=== PATIENT | female | born 1995 | race Caucasian/White ===

== ENCOUNTER 2025-02-09 17:56 | Emergency (ER) | payer BC, MEDICAID ==
[~2025-02-09] VITALS: Ht 162.6 cm; Wt 76.4 kg
[2025-02-09] MEDS: ONDANSETRON ODT 4 MG TAB PO ONE (18:45)
--- NOTE | 2025-02-09 18:45 | ED.PDOC ---
GI ASSESSMENT HPI Comments 29y F who presents to the ED for chief complaint of nausea and vomiting. Pt states she is currently 10 weeks , , and states she has been having nausea, vomiting, chills, since 0700 this AM getting progressively since. Pt states she started to develop cough and shortness of breath and called OB office who referred the patient to the ED for further evaluation. Pt otherwise has noted recent sick contact of partner who recently was ill and dx with Influenza B. Pt otherwise denies any other symptoms. Pt denies any other symptoms at this time. Time Seen by MD: 18:42 Primary Care Provider: TOYINK Reviewed Notes: Medications, Allergies Allergies: Coded Allergies: NO KNOWN ALLERGIES (Unverified , 02/09/25) Information Source: Patient, Significant Other Mode of Arrival: Ambulatory Brought in by: significant other Timing: Hours Duration: Since onset Prehospital treatment: None Quality: Cramping Vomitus: Firm Severity: Moderate Recent: None Recent Hx of: Current Pain Location: None Associated sign and symptoms: Nausea, Vomiting, Constipation Past Medical History PAST MEDICAL HISTORY: HTN Surgical History: Denies all surgeries LABEL REMOVER History: No Pertinent LABEL REMOVER History Family History Family History: Unknown Social History Smoker: Non-Smoker Alcohol: Denies ETOH Use Drugs: Denies Drug Use Lives In: Home Constitutional: reports: chills; denies: diaphoresis, fatigue, fever, malaise, sweats, weakness, others EENTM: denies: blurred vision, double vision, ear bleeding, ear discharge, ear drainage, ear pain, ear ringing, eye pain, eye redness, hearing loss, mouth pain, mouth swelling, nasal discharge, nose bleeding, nose congestion, nose pain, photophobia, tearing, throat pain, throat swelling, voice changes, others Respiratory: reports: cough, shortness of breath; denies: hemoptysis, orthopnea, SOB at rest, SOB with excertion, stridor, wheezing, others Cardiovascular: denies: chest pain, dizzy spells, diaphoresis, Dyspnea on exertion, edema, irregular heart beat, left arm pain, lightheadedness, palpitations, PND, syncope, others Gastrointestinal: reports: nausea, vomiting; denies: abdomen distended, abdominal pain, blood streaked bowels, constipated, diarrhea, dysphagia, difficulty swallowing, hematemesis, melena, poor appetite, poor fluid intake, rectal bleeding, rectal pain, others Genitourinary: denies: abnormal vagina bleeding, burning, dyspareunia, dysuria, flank pain, frequency, hematuria, incontinence, pain, , vagina discharge, urgency, others Neurological: denies: dizziness, fainting, headache, left sided numbness, left sided weakness, numbness, paresthesia, pre-existing deficit, right sided numbness, right sided weakness, seizure, speech problems, tingling, tremors, weakness, others Musculoskeletal: denies: back pain, gout, joint pain, joint swelling, muscle pain, muscle stiffness, neck pain, others Integumetry: denies: bruises, change in color, change in hair/nails, dryness, laceration, lesions, lumps, rash, wounds, others Allergic/Immunocompromised: denies: Difficulty Healing, Frequent Infections, Hives, Itching, others Hematologic/Lymphatic: denies: anemia, blood clots, easy bleeding, easy bruising, swollen glands, others Endocrine: denies: excessive hunger, excessive sweating, excessive thirst, excessive urination, flushing, intolerance to cold, intolerance to heat, unexplained weight gain, unexplained weight loss, others Psychiatric: denies: anxiety, bipolar disorder, depression, hopeless, panic disorder, schizophrenia, sleepless, suicidal, others All Other Systems: Reviewed and Negative Physical Exam General Appearance: Mild Distress HEENT: Normal ENT Inspection, Pharynx Normal, TMs Normal Neck: Full Range of Motion, Non-Tender, Normal, Normal Inspection Respiratory: Chest Non-Tender, Lungs Clear, No Accessory Muscle Use, No Respiratory Distress, Normal Breath Sounds Cardiovascular: No Edema, No JVD, No Murmur, No Gallop, Normal Peripheral Pulses, Regular Rate/Rhythm Breast Exam: Deferred Gastrointestinal: No Organomegaly, Non Tender, No Pulsatile Mass, Normal Bowel Sounds, Soft Genitalia: Deferred Pelvic: Deferred Rectal: Deferred Extremities: No calf tenderness, Normal capillary refill, Normal inspection, Normal range of motion, Non-tender, No pedal edema Musculoskeletal : Apperance: Normal Neurologic: Alert, cobbler upper II-XII nml as Tested, No Motor Deficits, Normal Affect, Normal Mood, No Sensory Deficits Cerebellar Function: Normal Reflexes: Normal Skin: Dry, Normal Color, Warm Lymphatic: No Adenopathy Was a procedure done? Was a procedure done?: No GI differential Dx Differential Diagnosis: Esophagitis, Gastritis/PUD, Gastroenteritis, Pancreatitis, UTI, Urolithiasis, Dehydration, Food Poisoning, Other Differential Diagnosis Influenza A and B, viral syndrome X-Ray, Labs, Meds, VS Vital Signs Date Time Temp Pulse Resp B/P (MAP) Pulse Ox O2 Delivery O2 Flow Rate FiO2 02/09/25 19:21 98.8 84 16 126/87 (100) 97 98.8 02/09/25 18:46 98.2 92 17 141/87 (105) 98 98.2 02/09/25 18:46 92 17 98 Room Air* 0 21 Lab Test 02/09/25 18:28 Range/Units Influenza Type A Antigen Negative Negative Influenza Type B Antigen Negative Negative SARS-CoV-2 Antigen (Rapid) Negative NEGATIVE Current Medications Medications (Trade) Dose Ordered Sig/Sharad Route Start Time Stop Time Status Last Admin Ondansetron HCl (Zofran Po) 4 mg ONCE ONCE PO 02/09/25 18:30 02/09/25 18:31 DC 02/09/25 18:45 OB ULTRASOUND <14 WEEKS: IMPRESSION: 1. IUP single live fetus 10 weeks 2 days AUA corresponding to an SANA of 09/05/2025. 2. FHR: 186 bpm The patient's COVID test is negative The influenza a and influenza B are negative At this time, the patient was being discharged and will follow up with the primary care doctor The patient will return to the emergency department's the condition worsens The patient was given Zofran here in the emergency department's for the nausea The patient will follow up with her OBGYN. Time of 1ST Reevaluation: 19:15 Reevaluation 1ST: Unchanged Patient Education/Counseling: Diagnosis, Treatment, Prognosis, Need For Follow Up Family Education/Counseling: Diagnosis, Treatment, Prognosis, Need For Follow Up Departure 1 Departure Time of Disposition: 20:23 Impression: Primary Impression: Viral syndrome Disposition: 01 HOME / SELF CARE / HOMELESS Condition: Fair Discharged With: Self Critical Care Note Critical Care Time?: No Stability Stability form required: No Heart Score Heart Score: Heart Score Response (Comments) Value History N/A 0 EKG N/A 0 Age N/A 0 Risk Factors N/A 0 Troponin N/A 0 Total 0 I personally scribed for EDDIE FORTUNE MD ([email or web address]) on 02/09/25 at 18:45. Electronically submitted by Chuy Ashton ([facility]). I personally scribed for EDDIE FORTUNE MD ([email or web address]) on 02/09/25 at 19:45. Electronically submitted by Chuy Ashton ([email or web address]). EDDIE FORTUNE MD Feb 09, 2025 18:45
[2025-02-09 18:46] VITALS: PULSE 92; RESP 17; O2SAT 98
[2025-02-09 19:21] VITALS: TEMP 98.8
--- NOTE | 2025-02-09 19:22 | DVH ---
OB ULTRASOUND <14 WEEKS: HISTORY: pain TECHNIQUE: Multiple real-time grayscale sonographic images of the pelvis with duplex Doppler color f low, spectral and M-mode analysis. TRANSDUCERS: Transabdominal FINDINGS: The uterus measures 9.6 x 6.2 x 6.6 cm The cervix not measured Right ovary not seen Left ovary measures 3.3 x 2.9 x 2.5 cm with normal Doppler color flow IUP single live fetus at 10 weeks 2 days average ultrasound age based on mean crown-rump length of 3. 5 cm and gestational sac size of 4.5 cm heart rate detected at 186 beats per minute. Yolk sac not visible. Amniotic fluid adequate Krupa-gestational space: Normal IMPRESSION: 1. IUP single live fetus 10 weeks 2 days AUA corresponding to an SANA of 09/05/2025. 2. FHR: 186 bpm
[2025-02-09 19:55] LABS: Rapid Influenza A Negative (Negative); Rapid Influenza B Negative (Negative)
[2025-02-09 19:56] LABS: COVID19 ANTIGEN SOFIA FIA NEGATIVE (NEGATIVE)
[2025-02-09 20:30] VITALS: BP 142/98; PULSE 87; RESP 18; O2SAT 100
[2025-02-09 20:35] LABS: Urine Amorphous Crystal FEW /hpf (None Seen); Urine Bacteria FEW /hpf (None Seen); Urine Blood Negative /uL (Negative); Urine Clarity Turbid (Clear); Urine Color Light-Yellow (Yellow); Urine Mucus FEW (None Seen); Urine Protein, UAD Negative (Negative); Urine Specific Gravity 1.015 (1.001-1.035); Urine Squamous Epithelial Cell FEW /hpf (<5); Urine Urobilinogen Normal (Negative); Urine WBC 5 /HPF (0-5); Urine pH 7.5 (5.0-9.0)
[2025-02-09] MEDS: SODIUM CHLORIDE 0.9% 1,000 ML IV ONE (20:40)
[2025-02-09] MEDS ORDERED: ZOFR4T PO (21:33)
== END 2025-02-09 21:37 | disposition home or self-care (01) ==
LOC: ER 17:56
DX: O98.511 Other viral diseases complicating pregnancy, first trimester (principal); O21.9 Vomiting of pregnancy, unspecified; O10.911 Unspecified pre-existing hypertension complicating pregnancy, first trimester; B34.9 Viral infection, unspecified; Z3A.10 10 weeks gestation of pregnancy; Z20.822 Contact with and (suspected) exposure to COVID-19
CPT/HCPCS: 36415; 76801; 81001; 87426; 87804; 96360; 99284; J7030

== ENCOUNTER 2025-06-08 14:00 | Observation (INO) | payer BC ==
[~2025-06-08 14:00] MED LIST: ZOFR4T PO
[2025-06-08] MEDS ORDERED: PREN-96 PO (14:39)
--- NOTE | 2025-06-08 16:40 | DVH ---
COMPLETE ABDOMINAL ULTRASOUND HISTORY: RUQ pain with abdominal cramping TECHNIQUE: Grayscale and color-flow Doppler ultrasound examination of the abdomen was performed. COMPARISON: None Findings: Liver measures 15.6 cm in length with increased echotexture and normal contours. No evidence of solid or cystic hepatic lesions, or intrahepatic ductal dilatation. Common bile duct nonvisualized. No albina dence of perihepatic free fluid noted. Normal hepatopedal flow within the portal vein. Gallbladder wall is within normal limits measuring 0.1 cm in thickness. There are shadowing calculi. No evidence of biliary sludge or pericholecystic fluid. Negative sonographic Rodríguez's sign. Visualized portions of the pancreas are grossly unremarkable. Spleen appears within normal limits measuring 10.6 cm with homogenous echotexture and normal contours . Right kidney measures 10.0 cm. Left kidney measures 11.7 cm. Normal renal contours, echotexture and c ortical thickness bilaterally. No evidence of hydronephrosis, nephrolithiasis, cystic or solid renal lesions. The aorta and IVC are not well visualized. Impression: 1. No acute abdominal abnormalities. 2. Cholelithiasis without evidence of acute cholecystitis. 3. Hepatic steatosis.
--- NOTE | 2025-06-09 04:45 | DVHDS2 ---
Physician Discharge Progress N Final Diagnosis: ABD PAIN 24WKS S/P SONO FINDINGS C/W GALLSTONES Operations or Procedures: Operations or Procedures NST ,SONO Consultations: Consultations GALLSTONES Condition on Discharge: Good Disposition: Home Discharge Instructions: Diet: See Comment Diet comment: Stay away from fatty foods Activity: No Restrictions, As Tolerated Medications: NA Follow Up Care: Specialist: 1W Discharge Statement: "Patient was advised to return to the ER or call 911 if any headaches, dizziness, shortness of breath, chest pain, abdominal pain, bleeding, fevers, or worsening of medical condition. Patient was counseled about treatment plan, medications, possible side effects, patientverbalized understanding. All questions were answered to the best of my ability. This discharge took greater then 30 minutes in planning, reviewing documentation, counseling the patient, and discussing with other team members." Visit Coding OBGYN Date of Service: Jun 08, 2025 Billing Provider: ROSEMARY LI DO BRIDGE BUILDER Common Visit Codes: 09160-[id number] OBS CARE (HIGH) BRIDGE BUILDER Procedure Codes: 35675-70- NON-STRESS TEST ROSEMARY LI DO Jun 09, 2025 04:45
== END 2025-06-08 16:07 | disposition home or self-care (01) ==
LOC: LDRP 14:00
PROVIDERS: ADMIT Obstetrics & Gynecology; ATTEND Obstetrics & Gynecology
DX: O99.612 Diseases of the digestive system complicating pregnancy, second trimester (principal); K80.20 Calculus of gallbladder without cholecystitis without obstruction; O26.892 Other specified pregnancy related conditions, second trimester; R10.11 Right upper quadrant pain; Z3A.24 24 weeks gestation of pregnancy; Z79.899 Other long term (current) drug therapy
CPT/HCPCS: 76700; 81002; 94760; G0378

== ENCOUNTER 2025-07-20 10:52 | Observation (INO) | payer BC ==
[~2025-07-20] VITALS: Ht 162.6 cm; Wt 81.6 kg
[~2025-07-20 10:52] MED LIST changes: +PREN-96 PO
--- NOTE | 2025-07-20 12:07 | DVH ---
BIOPHYSICAL PROFILE HISTORY: GDMA1 Comparison Study: US ABDOMEN COMPLETE SONOGRAM on DOS: 06/08/25, US OB ULTRASOUND COMP LESS 14WKS on D OS: 02/09/25 TECHNIQUE: Multiple real-time grayscale sonographic images through the gravid uterus of the fetus wi th duplex Doppler color flow and M-mode spectral analysis FINDINGS: BIOPHYSICAL PROFILE: breathing score: 2 movement score: 2 tone score: 2 Quantitative JOB score: 2 (JOB: 15.7 Cm.) Total score: 8 The cervix is not visualized Single live fetus in cephalic presentation. heart rate 148 beats per minute. Grade 1, anterior placenta without previa or abruption IMPRESSION: Biophysical profile score: 8
== END 2025-07-20 12:50 | disposition home or self-care (01) ==
LOC: LDRP 10:52
PROVIDERS: ADMIT Obstetrics & Gynecology; ATTEND Obstetrics & Gynecology
DX: O24.419 Gestational diabetes mellitus in pregnancy, unspecified control (principal); Z3A.33 33 weeks gestation of pregnancy; Z98.890 Other specified postprocedural states
CPT/HCPCS: 76818; 81002; 82948; 82962; 94760; G0378; 59025; 76819

== ENCOUNTER 2025-07-27 06:12 | Observation (INO) | payer BC ==
--- NOTE | 2025-07-27 14:03 | DVH ---
BIOPHYSICAL PROFILE HISTORY: GDMA1 TECHNIQUE: Multiple transabdominal real-time grayscale sonographic images through the gravid uterus of the fetus with duplex Doppler color flow and M-mode spectral analysis FINDINGS: BIOPHYSICAL PROFILE: breathing score: 2 movement score: 2 tone score: 2 Quantitative JOB score: 2 (JOB: 16 Cm.) Total score: 8 The cervix not well visualized. Single live fetus in cephalic presentation. heart rate 136 beats per minute. Anterior placenta without previa or abruption IMPRESSION: Biophysical profile score: 8
== END 2025-07-27 14:14 | disposition home or self-care (01) ==
LOC: UNDOADMOB 13:00 → LDRP 13:00
PROVIDERS: ADMIT Obstetrics & Gynecology; ATTEND Obstetrics & Gynecology
DX: O24.419 Gestational diabetes mellitus in pregnancy, unspecified control (principal); Z3A.34 34 weeks gestation of pregnancy; Z98.890 Other specified postprocedural states
CPT/HCPCS: 76818; 81002; 82948; 82962; 94760; G0378; 76819

== ENCOUNTER 2025-08-03 06:37 | Observation (INO) | payer BC ==
--- NOTE | 2025-08-03 12:12 | DVH ---
BIOPHYSICAL PROFILE HISTORY: GDMA1 Comparison Study: US BIOPHYSICAL PROFILE on DOS: 07/27/25, US BIOPHYSICAL PROFILE on DOS: 07/20/25, US A BDOMEN COMPLETE SONOGRAM on DOS: 06/08/25, US OB ULTRASOUND COMP LESS 14WKS on DOS: 02/09/25 TECHNIQUE: Multiple real-time grayscale sonographic images through the gravid uterus of the fetus wi th duplex Doppler color flow and M-mode spectral analysis FINDINGS: BIOPHYSICAL PROFILE: breathing score: 2 movement score: 2 tone score: 2 Quantitative JOB score: 2 (JOB: 14.7 Cm.) Total score: 8 The cervix is not visualized Single live fetus in cephalic presentation. heart rate 135 beats per minute. Angerior placenta without previa or abruption IMPRESSION: Biophysical profile score: 8
--- NOTE | 2025-08-03 16:13 | DVHDS2 ---
Physician Discharge Progress N Final Diagnosis: gdm 35wks Operations or Procedures: Operations or Procedures nst reactive reviwed,,sono Condition on Discharge: Good Disposition: Home Discharge Instructions: Diet: Regular Activity: No Restrictions, As Tolerated Medications: na Follow Up Care: Specialist: 2d Discharge Statement: "Patient was advised to return to the ER or call 911 if any headaches, dizziness, shortness of breath, chest pain, abdominal pain, bleeding, fevers, or worsening of medical condition. Patient was counseled about treatment plan, medications, possible side effects, patientverbalized understanding. All questions were answered to the best of my ability. This discharge took greater then 30 minutes in planning, reviewing documenta tion, counseling the patient, and discussing with other team members." Visit Coding OBGYN Date of Service: Aug 03, 2025 Billing Provider: ROSEMARY LI DO HEEL SEAT FITTER Common Visit Codes: 24069-FICPIIT OBS CARE (HIGH) HEEL SEAT FITTER Procedure Codes: 65417-98- NON-STRESS TEST ROSEMARY LI DO Aug 03, 2025 16:13
== END 2025-08-03 13:10 | disposition home or self-care (01) ==
LOC: LDRP 10:56 → UNDOADMOB 10:56 → LDRP 11:36
PROVIDERS: ADMIT Obstetrics & Gynecology; ATTEND Obstetrics & Gynecology
DX: O24.419 Gestational diabetes mellitus in pregnancy, unspecified control (principal); Z3A.35 35 weeks gestation of pregnancy; Z79.899 Other long term (current) drug therapy
CPT/HCPCS: 76818; 81002; 82948; G0378; 59025; 76819

== ENCOUNTER 2025-08-10 06:48 | Observation (INO) | payer BC ==
[~2025-08-10] VITALS: Ht 162.6 cm; Wt 82.6 kg
--- NOTE | 2025-08-10 12:05 | DVH ---
BIOPHYSICAL PROFILE HISTORY: GMDA1 TECHNIQUE: Multiple transabdominal real-time grayscale sonographic images through the gravid uterus of the fetus with duplex Doppler color flow and M-mode spectral analysis FINDINGS: BIOPHYSICAL PROFILE: breathing score: 2 movement score: 2 tone score: 2 Quantitative JOB score: 2 (JOB: 11.1 Cm.) Total score: 8 The cervix not well seen. Single live fetus in cepjalic presentation. heart rate 130 beats per minute. Anterior placenta without previa or abruption IMPRESSION: Biophysical profile score: 8
--- NOTE | 2025-08-12 16:26 | DVHDS2 ---
Physician Discharge Progress N Final Diagnosis: gdm 36wks Operations or Procedures: Operations or Procedures nst reactive reviwed,sono Condition on Discharge: Good Disposition: Home Discharge Instructions: Diet: Consistent carbohydrate Activity: Light activity Medications: na Follow Up Care: Specialist: 1w Discharge Statement: "Patient was advised to return to the ER or call 911 if any headaches, dizziness, shortness of breath, chest pain, abdominal pain, bleeding, fevers, or worsening of medical condition. Patient was counseled about treatment plan, medications, possible side effects, patientverbalized understanding. All questions were answered to the best of my ability. This discharge took greater then 30 minutes in planning, reviewing documenta tion, counseling the patient, and discussing with other team members." Visit Coding OBGYN Date of Service: Aug 10, 2025 Billing Provider: ROSEMARY LI DO IMCU SPECIALIST Common Visit Codes: 69149-KFSTAGL OBS CARE (HIGH) IMCU SPECIALIST Procedure Codes: 17110-09- NON-STRESS TEST ROSEMARY LI DO Aug 12, 2025 16:26
== END 2025-08-10 12:27 | disposition home or self-care (01) ==
LOC: LDRP 11:05
PROVIDERS: ADMIT Obstetrics & Gynecology; ATTEND Obstetrics & Gynecology
DX: O24.419 Gestational diabetes mellitus in pregnancy, unspecified control (principal); Z3A.36 36 weeks gestation of pregnancy; Z98.890 Other specified postprocedural states
CPT/HCPCS: 76818; 81002; 82948; 82962; 94760; G0378; 59025; 76819

== ENCOUNTER 2025-08-17 08:45 | Inpatient (IN) | payer BC ==
[~2025-08-17] VITALS: Ht 162.6 cm; Wt 82.6 kg
[2025-08-17 13:00] LABS: Hematocrit 41.4 % (36.0-46.0); Hemoglobin 14.1 g/dL (12.2-16.2); Mean Corpuscular Hemoglobin 29.7 pg (28.0-32.0); Mean Corpuscular Volume 87.5 fL (80.0-100.0); Nucleated Red Blood Cells % 0.0 %
[2025-08-17 13:17] LABS: Urine Protein, UAD TRACE (Negative)
[2025-08-17 13:18] LABS: Alanine Aminotransferase 15 U/L (7-40); Albumin 3.8 g/dL (3.2-4.8); Anion Gap 14 (5-15); BUN/Creatinine Ratio 12.5 (10.0-20.0); Calcium 8.8 mg/dL (8.7-10.4); Chloride 103 mmol/L (98-107); INR 0.94 (0.9-1.15); Partial Thromboplastin Time 25.9 SEC (24.5-34.5); Potassium 3.7 mmol/L (3.5-5.1); Prothrombin Time 10.0 sec (9.3-11.8); Total Protein 6.7 g/dL (5.7-8.2)
[2025-08-17 13:31] LABS: Alkaline Phosphatase 140 U/L (46-116); Bilirubin, Total 0.3 mg/dL (0.2-1.0); Blood Urea Nitrogen 9 mg/dL (9-23); Carbon Dioxide 19 mmol/L (20-31); Glucose 138 mg/dL (74-106); Sodium 136 mmol/L (136-145); Uric Acid 9.6 mg/dL (3.1-7.8)
--- NOTE | 2025-08-17 13:43 | DVH ---
BIOPHYSICAL PROFILE HISTORY: gdma1 TECHNIQUE: Multiple transabdominal real-time grayscale sonographic images through the gravid uterus of the fetus with duplex Doppler color flow and M-mode spectral analysis FINDINGS: BIOPHYSICAL PROFILE: breathing score: 2 movement score: 2 tone score: 2 Quantitative JOB score: 2 (JOB: 11.7 Cm.) Total score: 8 The cervix not well visualized. Single live fetus in cephalic presentation. heart rate 131 beats per minute. Anterior placenta without previa or abruption IMPRESSION: Biophysical profile score: 8
[2025-08-17 14:17] LABS: Protein, Urine 24.6 mg/dL (1-14)
[2025-08-17] MEDS ORDERED: BUTORPHANOL TARTRATE 2 MG/1 ML VIAL IV PRN ×2 (14:30)
[2025-08-17] MEDS ORDERED: LIDOCAINE 2%HCL (LOCAL ANESTH.) INJ 20ML MDV IJ PRN (14:30)
--- NOTE | 2025-08-17 15:27 | DVHHP2 ---
OB CC & HPI Date Date of Admission: Aug 17, 2025 Patient Identification: : 1 Para: 0 EDC: Sep 03, 2025 EGA: 37.4wks Chief Complaints: Reason for admission: induction of labor Indication for induction: medical complication (preeclampsia with severe features and GDM, A1) History of Present Complaints 29yo IUP@37.4wks presents to OB triage with c/o headache that did not go away with tylenol at home. Denies UCs/LOF/VB/vision changes/RUQ pain. Endorses +FM. PNC: Routine PNC at [facility] with Dr. Phelan, adequate visits, PNC complicated by GDM, A1. GTT wnl, dating based on 9w3d sono not c/w LMP, GBS negative. Past Medical History Cardiac: No pertinent Hx Pulmonary: No pertinent Hx Central Nervous System: Other (brain tumor benign) GI: No pertinent Hx Hemotology/Oncology: No pertinent Hx Hepatobiliary: No pertinent Hx Psychiatric: No pertinent Hx Musculoskeletal: No pertinent Hx Rheumotologic: No pertinent Hx Infectious Disease: No peritnent Hx ENT: No pertinent Hx Renal/: No pertinent Hx Endocrine: No pertinent Hx Dermatology: No pertinent Hx Others pt has hx of fainting when she gets hot Past Surgical History: No pertinent Hx OB History OB History Care: Good Care Ultrasounds: Normal mid trimester US Obstetrical Complications: Gestational Diabetes (A1), Pre-eclampsia (severe features) Medical Complications: None Allergies: Coded Allergies: Peanut-containing Drug Products (Verified Allergy, Unknown, 07/20/25) Home Meds Active Scripts Ondansetron Odt 4MG Tab (ZOFRAN PO) 4 Mg Tb, 4 MG PO Q8HP PRN, #14 TAB ODT TAB-DISSOLVE IN MOUTH, THEN SWALLOW Prov:EDDIE FORTUNE MD 02/09/25 Reported Medications Vit W/ Ferrous Fumara ( One Daily) Daily Tab, 1 TAB PO DAILY, #90 TAB 3 Refills 06/08/25 Current Medications Current Medications Medications (Trade) Dose Ordered Sig/Sharad Route PRN Reason Start Time Stop Time Status Last Admin Lactated Ringer's 1,000 ml @ 125 mls/hr Q8H IV 08/17/25 14:30 Diagnostic Test (Pha) (Accu-Chek Comfort Curve T) 1 strip Q4HR 08/17/25 17:00 Witch Keira (Tucks) 1 pad PRN PRN TOP PERINEAL AREA DISCOMFORT 08/17/25 14:30 Sodium Lauryl Sulfate (Phisoderm) 240 ml PRN PRN TOP PERINEAL AREA DISCOMFORT 08/17/25 14:30 Benzocaine (Dermoplast) 1 applic PRN PRN TOP PERINEAL AREA DISCOMFORT 08/17/25 14:30 Butorphanol Tartrate (Stadol Injection) 1 mg Q4HPRN PRN IV MODERATE PAIN (4-6 PAIN SCALE) 08/17/25 14:30 Butorphanol Tartrate (Stadol Injection) 2 mg Q4HPRN PRN IV SEVERE PAIN (7-10 PAIN SCALE) 08/17/25 14:30 Misoprostol (Cytotec) 50 mcg Q4HPRN PRN PO CERVICAL RIPENING 08/17/25 14:30 Lidocaine HCl (Xylocaine) 40 ml ONCE PRN IJ PERINEAL AREA DISCOMFORT 08/17/25 14:30 Magnesium Sulfate 1,000 ml @ 50 mls/hr Q20H IV 08/17/25 14:30 Family & Social History Family/Social History Past Family/Social History: denies Blood Type: O+ Rubella: immune RPR/VDRL: Negative GBS Status: Negative HBsAG: Negative Review of Systems Constitutional: No symptom reported Ears, Nose, & Throat: No symptom reported Eyes: No symptom reported Pulmonary/Respiratory: No symptom reported Cardiovascular: No symptom reported Gastrointestinal: No symptom reported Genitourinary: No symptom reported Musculoskeletal: No symptom reported Skin: No symptom reported Psychiatric: No symptom reported Endocrine: No symptom reported Hemotologic/Lymphatic: No symptom reported OB Admission Exam Physical Exam Vitals: VSS, see CPN EFW in office last week: 6lbs 12oz HEENT: TMs Normal, Fontanelles Normal, Nasal Mucosa Normal, Eyes non-injected, Oropharynx Normal, PERRLA, Moist Membranes, EOMI Heart: Rhythm Normal Lungs: Clear Abdomen: Non tender Extremities: Normal Reflexes: Normal Pelvic Exam: SVE by RN: 50/-2, vertex Membranes: Intact Heart Rate: 130's Accelerations: Accelerations Present Decelerations: No Decelerations Human Performance Consultant Variability: Average (6-25) Contractions on Admission: None (uterine irritability) OB Plan Plan Admitting Diagnosis: IOL for preE with severe features and GDM, A1 Plan: Induction Induction Methd: Misoprostol protocol Other Plan: A: 29yo IUP@37.4wks Induction of Labor for PreE w/SF GDM, A1 Category I EFM Intact Membranes GBS negative P: Admit to L&D Informed consent obtained Discussed risks, benefits, alternatives of IOL for preE with pt. Pt consents to IOL with PO cytotec. monitoring per order Routine labs and preE labs ordered Pain mgmt PRN Frequent position changes in and out of bed encouraged Limit SVE unless necessary Intrauterine resuscitation PRN Anticipate CHENG is co-managing care with Dr. Phelan. CHENG is managing labor and Dr. Phelan is managing Preeclampsia. Dr. Phelan ordered magnesium sulfate IV infusion and IV hydralazine and labetalol 300mg PO BID. Visit Coding OBGYN Date of Service: Aug 17, 2025 Billing Provider: NORIS SINGLETON CNM MILL TURNER Common Visit Codes: [id number] INP/OBS CARE (HIGH) MILL TURNER Procedure Codes: 61516-55- NON-STRESS TEST NORIS SINGLETON CNM Aug 17, 2025 15:27
[2025-08-17] MEDS: MAGNESIUM SULFATE 100 ML IV ONE (15:47)
[2025-08-17] MEDS: PHISODERM TOP SOLN 240ML BTL TOP PRN (15:47)
[2025-08-17] MEDS: DERMOPLAST 60ML BOTTLE TOP PRN (15:47)
[2025-08-17] MEDS: WITCH HAZEL-GLYCERIN PAD TOP PRN (15:48)
[2025-08-17] MEDS: MAGNESIUM SULFATE 40MG/ML 1,000 ML IV SCH (15:51)
[2025-08-17] MEDS: LABETALOL HCL 200 MG TAB PO SCH (17:15)
[2025-08-17] MEDS: LACTATED RINGER'S 1,000 ML IV SCH (18:00)
[2025-08-17] MEDS: ACCU-CHEK COMFORT CURVE STRIP VI SCH (18:00)
[2025-08-17] MEDS ORDERED: NALBUPHINE HCL 10 MG/1ml INJECTION IV PRN (18:30)
[2025-08-17] MEDS ORDERED: ONDANSETRON HCL 4 MG/2 ML VIAL IV PRN (18:30)
[2025-08-17] MEDS ORDERED: NALOXONE HCL 0.4 MG/ML VIAL IV ONE ×2 (18:45→20:45)
[2025-08-17] MEDS ORDERED: hydrALAZINE HCL 20 MG/ML VL IV ONE (19:00)
[2025-08-17] MEDS ORDERED: hydrALAZINE HCL 20 MG/ML VL IV PRN (19:00)
[2025-08-17] MEDS: LACTATED RINGER'S 500 ML IV ONE (19:23)
[2025-08-17] MEDS: LIDOCAINE HCL 2 %PF INJ 10ML AMP IJ ONE (20:02)
[2025-08-17] MEDS: ROPIVACAINE HCL 100 ML ONE (20:26)
[2025-08-17] MEDS: fentaNYL CITRATE 100 MCG/2 ML VL IV ONE (20:26)
[2025-08-17] MEDS ORDERED: SODIUM CHLORIDE 0.9% 500 ML IV PRN (20:45)
[2025-08-17] MEDS ORDERED: fentaNYL CITRATE 100 MCG/2 ML VL IV ONE (20:45)
[2025-08-17] MEDS ORDERED: fentaNYL 400mCg/200ml W ROPIVA 200 ML EPI SCH (20:45)
--- NOTE | 2025-08-17 20:50 | EPIDURAL ---
Anesthesia Procedural Note - Epidural Date: Aug 17, 2025 Informed consent obtained?: Yes Medication Administered: Fentanyl 100 mcg 2% Lidocaine Administered: 5 Medication Administered: ePHEDrine 5 mg IV Sterile prept drape: Yes Spinal level of insertion: L3-L4 Test dose of lidocaine & Epine: Negative Infusion started: Yes Start time: 19:35 End time: 20:15 DARVIN HAMMONDS MD Aug 17, 2025 20:50
--- NOTE | 2025-08-17 23:10 | DVHPN2 ---
OB Labor Progress Note Date and Time Seen Date Seen: Aug 17, 2025 Time Seen: 22:07 Subjective Patient reports: No new complaints Subjective Comment No new complains at this time, pt has epidural in place Objective Vital Signs VSS see CPN Monitoring Method Monitoring Method: External Heart Rate Heart Rate Baseline: 125 Heart Rate Variability: Moderate Presence of FHR Accelerations: Yes Presence of FHR Decelerations: No Changes in Trends of Patterns: No Are all 5 Components of the FH: No Contractions Contractions Frequency: Occasional (2-3/10) Duration of Contraction: 70 Contractions Intensity: Mild Contractions Resting Tone: Relaxed Membranes Membranes: Intact Vaginal Exam Vag Exam Deferred: No (1.5/60/-2) Vaginal Exam Presentation: VTX Vaginal Exam Show: None Medications Medications - Pitocin: No Medication - Epidural: Yes Medication - Other s/p 1 dose of PO cytotec Lab Results Lab Results Vital Signs Date Time Temp Pulse Resp B/P (MAP) Pulse Ox O2 Delivery O2 Flow Rate FiO2 08/17/25 20:26 136/76 08/17/25 17:15 77 Current Medications Medications (Trade) Dose Ordered Sig/Sharad Start Time Stop Time Status Last Admin Dose Admin Lactated Ringer's 1,000 ml @ 125 mls/hr Q8H 08/17/25 14:30 08/17/25 18:00 125 MLS/HR Diagnostic Test (Pha) (Accu-Chek Comfort Curve T) 1 strip Q4HR 08/17/25 17:00 08/17/25 18:00 1 STRIP Witch Keira (Tucks) 1 pad PRN PRN 08/17/25 14:30 08/17/25 15:48 1 PAD Sodium Lauryl Sulfate (Phisoderm) 240 ml PRN PRN 08/17/25 14:30 08/17/25 15:47 240 ML Benzocaine (Dermoplast) 1 applic PRN PRN 08/17/25 14:30 08/17/25 15:47 1 APPLIC Butorphanol Tartrate (Stadol Injection) 1 mg Q4HPRN PRN 08/17/25 14:30 08/17/25 18:17 DC Butorphanol Tartrate (Stadol Injection) 2 mg Q4HPRN PRN 08/17/25 14:30 08/17/25 18:17 DC Misoprostol (Cytotec) 50 mcg Q4HPRN PRN 08/17/25 14:30 08/17/25 17:58 50 MCG Lidocaine HCl (Xylocaine) 40 ml ONCE PRN 08/17/25 14:30 Magnesium Sulfate 1,000 ml @ 50 mls/hr Q20H 08/17/25 14:30 08/17/25 15:51 50 MLS/HR Magnesium Sulfate 100 ml @ 300 mls/hr ONCE ONCE 08/17/25 14:30 08/17/25 15:19 DC 08/17/25 15:47 300 MLS/HR Oxytocin 500 ml @ 999 mls/hr Q31M ONCE 08/17/25 14:30 08/17/25 15:19 DC Oxytocin 500 ml @ 125 mls/hr Q4H ONCE 08/17/25 15:00 08/17/25 18:59 DC Labetalol HCl (Normodyne Tablet) 300 mg Q12H 08/17/25 15:30 08/17/25 17:38 DC 08/17/25 17:15 300 MG Labetalol HCl (Normodyne Tablet) 300 mg Q12H 08/18/25 05:00 Ondansetron HCl (Zofran) 4 mg Q6HPRN PRN 08/17/25 18:30 Nalbuphine HCl (Nubain) 10 mg Q4HP PRN 08/17/25 18:30 Naloxone HCl (Narcan) 0.2 mg PRN ONCE 08/17/25 18:45 08/17/25 18:53 DC Ephedrine Sulfate (ePHEDrine SULFATE) 10 mg PRN ONCE 08/17/25 18:45 08/17/25 18:56 DC Fentanyl Citrate 100 mcg ONCE ONCE 08/17/25 18:45 08/17/25 18:53 DC 08/17/25 20:26 100 MCG Lidocaine HCl (Xylocaine-Pf 2% Injection) 10 ml ONCE ONCE 08/17/25 18:45 08/17/25 18:53 DC 08/17/25 20:02 10 ML Lactated Ringer's 500 ml @ 500 mls/hr Q1H ONCE 08/17/25 18:45 08/17/25 19:44 DC 08/17/25 19:23 500 MLS/HR Hydralazine HCl (Apresoline Injection) 5 mg ONCE ONCE 08/17/25 19:00 08/17/25 18:56 DC Hydralazine HCl (Apresoline Injection) 5 mg PRN PRN 08/17/25 19:00 Sodium Chloride 500 ml @ 500 mls/hr Q1H PRN 08/17/25 20:45 Naloxone HCl (Narcan) 0.2 mg PRN ONCE 08/17/25 20:45 08/17/25 21:23 DC Ephedrine Sulfate (ePHEDrine SULFATE) 10 mg PRN ONCE 08/17/25 20:45 08/17/25 21:23 DC Fentanyl Citrate 100 mcg ONCE ONCE 08/17/25 20:45 08/17/25 21:23 DC Fentanyl/ Ropivacaine 200 ml @ 10 mls/hr UD 08/17/25 20:45 08/19/25 20:44 Laboratory Tests Test 08/17/25 22:00 08/17/25 20:55 08/17/25 14:54 08/17/25 12:35 Range/Units POC Glucose 95 70-106 mg/dl Magnesium Lvl (Mg Sulfate Therapy) 2.39 L 4.0-7.1 mg/dL Treponema pallidum Antibody Non-reactive Negative Hepatitis C Antibody Negative Negative White Blood Count 7.4 4.4-10.8 10^3/uL Red Blood Count 4.73 4.0-5.20 10^6/uL Hemoglobin 14.1 12.2-16.2 g/dL Hematocrit 41.4 36.0-46.0 % Mean Corpuscular Volume 87.5 80.0-100.0 fL Mean Corpuscular Hemoglobin 29.7 28.0-32.0 pg Mean Corpuscular Hemoglobin Concent 34.0 32.0-36.0 g/dL Red Cell Distribution Width 13.2 11.8-14.3 % Platelet Count 227 140-450 10^3/uL Mean Platelet Volume 9.8 6.9-10.8 fL Neutrophils (%) (Auto) 66.7 37.0-80.0 % Lymphocytes (%) (Auto) 25.2 10.0-50.0 % Monocytes (%) (Auto) 7.1 0.0-12.0 % Eosinophils (%) (Auto) 0.5 0.0-7.0 % Basophils (%) (Auto) 0.5 0.0-2.0 % Neutrophils # (Auto) 5.0 1.6-8.6 10 ^3/uL Lymphocytes # (Auto) 1.9 0.4-5.4 10 ^3/uL Monocytes # (Auto) 0.5 0-1.3 10 ^3/uL Eosinophils # (Auto) 0 0-0.8 10 ^3/uL Basophils # (Auto) 0 0-0.2 10 ^3/uL Nucleated Red Blood Cells 0.0 % Prothrombin Time 10.0 9.3-11.8 sec Prothrombin Time INR 0.94 0.9-1.15 Activated Partial Thromboplast Time 25.9 24.5-34.5 SEC Sodium Level 136 136-145 mmol/L Potassium Level 3.7 3.5-5.1 mmol/L Chloride Level 103 98-107 mmol/L Carbon Dioxide Level 19 L 20-31 mmol/L Anion Gap 14 5-15 Blood Urea Nitrogen 9 9-23 mg/dL Creatinine 0.72 0.550-1.02 mg/dL Glomerular Filtration Rate Calc 117 >90 mL/min BUN/Creatinine Ratio 12.5 10.0-20.0 Serum Glucose 138 H 74-106 mg/dL Uric Acid 9.6 H 3.1-7.8 mg/dL Calcium Level 8.8 8.7-10.4 mg/dL Total Bilirubin 0.3 0.2-1.0 mg/dL Aspartate Amino Transferase (AST) 21 13-40 U/L Alanine Aminotransferase (ALT) 15 7-40 U/L Alkaline Phosphatase 140 H 46-116 U/L Total Protein 6.7 5.7-8.2 g/dL Albumin 3.8 3.2-4.8 g/dL Test 08/17/25 12:00 Range/Units Urine Color Light-yellow Yellow Urine Clarity Turbid H Clear Urine pH 6.5 5.0-9.0 Urine Specific [place] 1.011 1.001-1.035 Urine Protein Trace H Negative Urine Ketones Negative Negative Urine Blood Negative Negative /uL Urine Nitrite Negative Negative Urine Bilirubin Negative Negative Urine Urobilinogen Normal Negative mg/dL Urine Leukocyte Esterase 1+ Negative /uL Urine RBC 3 0 - 4 /hpf Urine Microscopic WBC 5 0-5 /HPF Urine Squamous Epithelial Cells Mod <5 /hpf Urine Bacteria Few H None Seen /hpf Urine Mucus Few None Seen Urine Creatinine 86.29 30.0-125.0 mg/dL Urine Protein/Creatinine Ratio 0.29 Urine Glucose Normal Normal mg/dL Urine Total Protein 24.6 H 1-14 mg/dL Assessment Assessment A: 29yo IUP@37.4wks Induction of Labor for Pre-E Category I EFM Intact Membranes GBS negative Plan Plan P: Wilson balloon placed in cervix with 60 ml of saline monitoring per order Pain mgmt - epidural in place Frequent position changes in bed encouraged Limit SVE unless necessary Intrauterine resuscitation PRN Anticipate CNM co-managing with Dr. Phelan Plan discussed with: Patient, Spouse Visit Coding OBGYN Date of Service: Aug 17, 2025 Billing Provider: NORIS SINGLETON CNM DRILLING SUPERINTENDENT Common Visit Codes: [id number] INP/OBS CARE(HIGH) ROLANDA SAUNDERS Aug 17, 2025 23:10
[2025-08-18 02:18] LABS: Amphetamine Screen, Urine Neg (NEGATIVE); Barbiturate Scree,Urine Neg (NEGATIVE); Benzodiazephine Screen, Urine Neg (NEGATIVE); Cannabinoid Screen, Urine Neg (NEGATIVE); Cocaine Screen, Urine Neg (NEGATIVE); Opiate Scree,Urine Neg (NEGATIVE)
[2025-08-18 02:19] LABS: Phencyclidine Screen, Urine Neg (NEGATIVE)
[2025-08-18] MEDS ORDERED: ACETAMINOPHEN 325 MG TAB PO PRN ×2 (04:30→12:45)
[2025-08-18] MEDS: ACETAMINOPHEN 500 MG TAB or CAP PO ONE (04:52)
[2025-08-18] MEDS: ROPIVACAINE HCL 100 ML ONE (04:52)
--- NOTE | 2025-08-18 07:13 | DVHPN2 ---
Chief Complaints Patient reports: No new complaints Nursing reports: No new complaints Objective Vitals Vital Signs Date Time Temp Pulse Resp B/P (MAP) Pulse Ox O2 Delivery O2 Flow Rate FiO2 08/17/25 20:26 136/76 08/17/25 17:15 77 Medications Current Medications Medications (Trade) Dose Ordered Sig/Sharad Route PRN Reason Start Time Stop Time Status Last Admin Acetaminophen (Tylenol Tablet) 1,000 mg Q6HP PRN PO MILD PAIN (1-3 PAIN SCALE) 08/18/25 04:30 Cancel Benzocaine (Dermoplast) 1 applic PRN PRN TOP PERINEAL AREA DISCOMFORT 08/17/25 14:30 08/17/25 15:47 Diagnostic Test (Pha) (Accu-Chek Comfort Curve T) 1 strip Q4HR 08/17/25 17:00 08/17/25 18:00 Fentanyl/ Ropivacaine 200 ml @ 10 mls/hr UD EPI 08/17/25 20:45 08/19/25 20:44 Hydralazine HCl (Apresoline Injection) 5 mg PRN PRN IV SBP>160 or DBP>95 08/17/25 19:00 Labetalol HCl (Normodyne Tablet) 300 mg Q12H PO 08/18/25 05:00 Lactated Ringer's 1,000 ml @ 125 mls/hr Q8H IV 08/17/25 14:30 08/18/25 01:16 Lidocaine HCl (Xylocaine) 40 ml ONCE PRN IJ PERINEAL AREA DISCOMFORT 08/17/25 14:30 Magnesium Sulfate 1,000 ml @ 50 mls/hr Q20H IV 08/17/25 14:30 08/17/25 15:51 Misoprostol (Cytotec) 50 mcg Q4HPRN PRN PO CERVICAL RIPENING 08/17/25 14:30 08/18/25 05:32 Nalbuphine HCl (Nubain) 10 mg Q4HP PRN IV MODERATE PAIN (4-6 PAIN SCALE) 08/17/25 18:30 Ondansetron HCl (Zofran) 4 mg Q6HPRN PRN IV NAUSEA / VOMITING 08/17/25 18:30 Sodium Chloride 500 ml @ 500 mls/hr Q1H PRN IV FOR BP LESS THAN 90 08/17/25 20:45 Sodium Lauryl Sulfate (Phisoderm) 240 ml PRN PRN TOP PERINEAL AREA DISCOMFORT 08/17/25 14:30 08/17/25 15:47 Witch Keira (Tucks) 1 pad PRN PRN TOP PERINEAL AREA DISCOMFORT 08/17/25 14:30 08/17/25 15:48 Others ve-1.5cm/60/-2 Studies Laboratory Tests 08/17/25 12:35 Test 08/17/25 12:35 Range/Units Serum Glucose 138 H 74-106 mg/dL Ass/Plan Assessment iol Plan balloon in place Visit Coding OBGYN Date of Service: Aug 18, 2025 Billing Provider: ROSEMARY LI DO ASSOCIATE TECHNICIAN Common Visit Codes: [id number] INP/OBS CARE(LOW), [id number] INP/OBS CARE(HIGH) ASSOCIATE TECHNICIAN Procedure Codes: 23930-63- NON-STRESS TEST ROSEMARY LI DO Aug 18, 2025 07:13
[2025-08-18] MEDS ORDERED: TERBUTALINE SULFATE 1 MG/ML 1ML VIAL SC PRN (07:30)
[2025-08-18] MEDS: LACT. RINGERS/OXYTOCIN 20UNITS 1,000 ML IV SCH (10:11)
[2025-08-18] MEDS: LABETALOL HCL 200 MG TAB PO SCH ×2 (11:36→23:45)
[2025-08-18] MEDS: LACT. RINGERS/OXYTOCIN 20UNITS 500 ML IV ONE ×2 (12:37→12:38)
--- NOTE | 2025-08-18 12:42 | LDN2 ---
Labor and Delivery Note Date 08/18/25 Age 29 1 Para 1 EDC 10-11 EGA 37wks Diagnosis iol for pih Vaginal Delivery: VTX Placenta: Spontaneous Sex: Female Apgars 8-9 Nuchal Cord Transected: No Amniotic Fluid: Clear Anesthesia epidura;l Episiotomy: No Extension: Yes (1st dge periurethral lac) Repaired with 2-0 chromic EBL 300ml Labs Blood Bank 08/17/25 14:54: Blood Type O POSITIVE Complications none Conditions stable Comments/Significant Med Daysi spec exam no cxal lac Visit Coding OBGYN Date of Service: Aug 18, 2025 Billing Provider: ROSEMARY LI DO CURRICULUM CONSULTANT Common Visit Codes: [id number] OBS CARE (HIGH) CURRICULUM CONSULTANT Procedure Codes: [id number] DELIVERY ONLY ROSEMARY LI DO Aug 18, 2025 12:42
[2025-08-18] MEDS: IBUPROFEN 600 MG TAB PO PRN (12:51)
[2025-08-18 18:30] VITALS: BP 145/92; PULSE 76; RESP 16; TEMP 98.3; O2SAT 99
[2025-08-18 23:30] VITALS: BP 140/87; PULSE 71; RESP 16; TEMP 98.4; O2SAT 99
[2025-08-19 03:30] VITALS: BP 141/80; PULSE 77; RESP 18; TEMP 99; O2SAT 98
[2025-08-19 06:46] VITALS: BP 144/96; PULSE 72; RESP 18; TEMP 98.2; O2SAT 97
[2025-08-19 06:52] VITALS: BP 124/82; PULSE 76; RESP 18
--- NOTE | 2025-08-19 07:04 | DVHPN2 ---
Progress Note Date Seen: Aug 19, 2025 Subjective Lourdes had a good night and was able to get a little bit of rest. She expresses excitement about going home today and states she has a lot of support at home. SUBJECTIVE -Lochia minimal -Tolerating regular diet well. -Pain relieved with oral medication PRN -Ambulating and voiding well w/o feeling lightheaded or dizzy. -Passing flatus but no BM yet -Breast feeding. -Desires and requests to be discharged home today (08/19) vital signs Vital Sign Date Time Temp Pulse Resp B/P (MAP) Pulse Ox O2 Delivery O2 Flow Rate FiO2 08/19/25 06:47 Room Air 08/19/25 06:46 98.2 72 18 144/96 (112) 97 98.2 Total Intake and Output 08/18/25 08/18/25 08/19/25 15:00 23:00 07:00 Output Total 1250 ml Balance -1250 ml medications Current Medications Medications Dose Ordered Sig/Sharad Route Start Time Stop Time Status Last Admin Dose Admin Say Crockett 1 pad PRN PRN TOP 08/17/25 14:30 08/17/25 15:48 1 PAD Sodium Lauryl Sulfate 240 ml PRN PRN TOP 08/17/25 14:30 08/17/25 15:47 240 ML Benzocaine 1 applic PRN PRN TOP 08/17/25 14:30 08/17/25 15:47 1 APPLIC Hydralazine HCl 5 mg PRN PRN IV 08/17/25 19:00 Acetaminophen 1,000 mg Q6HP PRN PO 08/18/25 04:30 Cancel Ibuprofen 600 mg Q6HP PRN PO 08/18/25 12:45 08/18/25 23:48 600 MG Acetaminophen 650 mg Q4HP PRN PO 08/18/25 12:45 Labetalol HCl 300 mg Q12H PO 08/18/25 23:30 08/18/25 23:45 300 MG laboratory and microbiology Laboratory Tests 08/17/25 12:35 Test 08/17/25 12:35 Range/Units Serum Glucose 138 H 74-106 mg/dL Objective OBJECTIVE -A&O x4. No apparent distress. Affect appropriate -Afebrile, VSS -Chest: heart and lung sounds normal. -Breasts: Nipples intact w/o cracks or soreness -Abdomen: normal BS, soft, non-tender, no rebound or guarding, fundus firm @ U- 1, lochia minimal -Perineum:- no edema, or erythema, Incision site with sutures intact, edges in good approximation. -Extremities: no edema or tenderness Problems(with codes): (1) (normal spontaneous vaginal delivery) (2) Laceration of periurethral tissue with delivery Assessment/Plan ASSESSMENT -29 yo now ppd #1 s/p doing well. -Blood Type: O+ -Breast feeding -Rubella Immune PLAN -Continue pain management with oral medications as previously ordered -Increase fluid intake and fiber in diet to promote regular bowel movements, Laxative PRN -Encouraged patient to continue taking vitamin and iron -Educated patient on self care and warning signs of PPH, PPD, and pre-eclampsia. Answered all pt questions and concerns -Continue routine care and anticipate discharge today Plan discussed with: Patient, Spouse Visit Coding OBGYN Date of Service: Aug 19, 2025 Billing Provider: HERMINIA GUERRA CNM LAST REPAIRER HELPER Common Visit Codes: [id number] INP/OBS CARE(HIGH) HERMIINA GUERRA CNM Aug 19, 2025 07:04
--- NOTE | 2025-08-19 07:07 | DVHDS2 ---
Obstetrics Discharge Summary Obstetrics Discharge Summary Date of Admission: Aug 17, 2025 Date of Discharge: Aug 19, 2025 Reason For Admission: Induction of Labor (PIH) Intrapartum Procedures: Spontaneous vaginal deliv Operative Complicat: Laceration (periurethral) Discharge Diagnosis: Term -Delivered Discharge Information: Activity (Unrestricted. Advance as tolerated. Balance activities with rest periods. No heavy lifting, pushing or straining. Pelvic rest x 6 weeks), Diet (Routine), Medications (See med list), Instructions, Discharge to (Home), Accompanied by (partner), Discarge date (08/19/25) Discharge Care Plan Instructions - self care instructions given - emergency signs and symptoms including but not limited to pre-eclampsia precautions and signs of infection, PPH & of PPD reviewed with patient. -Follow up with OB Provider in 2 weeks and again at 6 weeks. Discussed need to retest for GDM Visit Coding OBGYN Date of Service: Aug 19, 2025 Billing Provider: HERMINIA GUERRA CNM PEDIATRIC SURGEON Common Visit Codes: [id number] DISCH DAY >30MIN HERMINIA GUERRA CNM Aug 19, 2025 07:06
[2025-08-19] MEDS ORDERED: DOCU-94 PO (07:08)
[2025-08-19] MEDS ORDERED: IBU600T PO (07:08)
[2025-08-19 11:09] VITALS: BP 137/83; PULSE 81; RESP 18; TEMP 98; O2SAT 97
[2025-08-19] MEDS ORDERED: LABE300T5 PO (12:39)
[2025-08-19 13:42] VITALS: BP 129/89; PULSE 85; RESP 18; TEMP 98.2; O2SAT 98
== END 2025-08-19 14:30 | disposition home or self-care (01) | DRG 807 ==
LOC: LDRP 11:55 → OBSVTOIN 14:24 → LDRP 08-18 15:20
PROVIDERS: ADMIT Obstetrics & Gynecology; ATTEND Obstetrics & Gynecology
PROC: 10E0XZZ Delivery of Products of Conception, External Approach (ICD-10-PCS; principal; 2025-08-18)
PROC: 0HQ9XZZ Repair Perineum Skin, External Approach (ICD-10-PCS; 2025-08-18)
PROC: 3E0R3BZ Introduction of Anesthetic Agent into Spinal Canal, Percutaneous Approach (ICD-10-PCS; 2025-08-18)
PROC: 00HU33Z Insertion of Infusion Device into Spinal Canal, Percutaneous Approach (ICD-10-PCS; 2025-08-18)
DX: O14.14 Severe pre-eclampsia complicating childbirth (principal); Z37.0 Single live birth; Z3A.37 37 weeks gestation of pregnancy; O24.420 Gestational diabetes mellitus in childbirth, diet controlled; O71.82 Other specified trauma to perineum and vulva; Z91.010 Allergy to peanuts; Z86.011 Personal history of benign neoplasm of the brain
CPT/HCPCS: 36415; 59200; 59409; 62282; 76819; 80053; 80307; 81001; 81002; 82570; 82948; 82962; 83735; 84156; 84550; 85025; 85610; 85730; 86780; 86803; 86850; 86900; 86901; 94760; 94762; 96360; 96361; 96365; 96366; G0378; J2590